=== PATIENT | male | born 1960 ===

== ENCOUNTER 2021-05-08 10:27 | Emergency (ER) | payer BC ==
[2021-05-08] MEDS ORDERED: Sodium Chloride 0.9% 2.5 ML Syringe FLUSH PRN (10:32)
[2021-05-08] MEDS ORDERED: Sodium Chloride 0.9% 10 ML Syringe FLUSH PRN (10:32)
--- NOTE | 2021-05-08 10:34 | EDM.PDOC ---
ED HPI GENERAL MEDICAL PROBLEM - General Stated Complaint: DIZZY/L ARM TINGLING Time Seen by Provider: 05/08/21 10:31 Source of Information: Reports: Patient History Limitations: Reports: No Limitations - History of Present Illness INITIAL COMMENTS - FREE TEXT/NARRATIVE: HISTORY AND PHYSICAL: History of present illness: Patient is a 60-year-old male who presents to the emergency room with complaints of tingling sensation to his upper extremities, dizziness and near syncope. Patient reports he has a longstanding history of neck and back problems due to his scoliosis, which has caused some intermittent tingling to his upper extremities worse over the past several years. He also states he suffers from sciatica and does have intermittent pain and tingling sensation to either lower extremity. Denies any one sided weakness, urinary or fecal incontinence, or complete numbness to either his upper nor lower extremities. 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 He has had episodes of dizziness to the point of "I feel like I could pass out". He feels that resting and laying down improves that. These symptoms occur while he is driving his truck, at home he has not experienced the symptoms as much. He also states he has a tight feeling to his throat after he smokes, causing him to feel slightly short of breath. This sensation dissipates after several minutes. Patient denies any fever, chills, headache, change in vision, chest pain, back pain or cough. Denies any abdominal pain, nausea, vomiting, diarrhea, constipation or dysuria. Has not noted any blood in urine or stool. Patient has been eating and drinking appropriately. Review of systems: As per history of present illness and below otherwise all systems reviewed and negative. Past medical history: As per history of present illness and as reviewed below otherwise noncontributory. Surgical history: As per history of present illness and as reviewed below otherwise noncontributory. Social history: See social history for further information Family history: As per history of present illness and as reviewed below otherwise noncontributory. Physical exam: General: Well developed and well nourished. Alert and orientated x 3. Nontoxic in appearance and in no acute distress. Vital signs are stable and have been reviewed by me. Nursing notes were reviewed. HEENT: Atraumatic, normocephalic, pupils equal and reactive bilaterally, negative for conjunctival pallor or scleral icterus, mucous membranes moist, TMs normal bilaterally, throat clear, neck supple, nontender, trachea midline. No drooling or trismus noted. No meningeal signs. No hot potato voice noted. Lungs: Clear to auscultation bilaterally. No wheezes, rales, or rhonchi. Chest nontender. Normal work of breathing, no accessory muscles used. Heart: S1S2, regular rate and rhythm without overt murmur, gallops, or rubs. No JVD. No peripheral edema Abdomen: Soft, nondistended, nontender. Normoactive bowel sounds. Negative for masses or costovertebral tenderness. C-spine/Back: No pinpoint vertebral tenderness upon palpation. No crepitus, step-offs or obvious deformities. Patient is ambulatory into the emergency room without difficulty or deficit. Able to rock back on heels and walk on toes. Denies any urinary or fecal incontinence. Denies any numbness, tingling or saddle paresthesia. No concerns of serious infection, fracture or cord compression, or cauda equina syndrome. Deep tendon reflexes brisk bilaterally. Skin: Intact, warm, dry. No lesions or rashes noted. Hematologic: No petechiae or purpra. Mucosa appropriate color and normal nail bed color and refill. Extremities: Atraumatic, moves all extremities per self without difficulty or deficits, negative for cords or calf pain. Neurovascular unremarkable. Neuro: Awake, alert, oriented. Cranial nerves II through XII unremarkable. Cerebellum unremarkable. Motor and sensory unremarkable throughout. Exam nonfocal. Psychiatric: Mood and affect are appropriate. Normal thought process. Answering questions appropriately. Notes: *This patient was seen and evaluated during the 2019 SARS-CoV-2 novel coronavirus pandemic period. Community viral transmission is ongoing at time of this encounter and the emergency department is operating under pandemic response procedures. Patient is a 60-year-old male who presents to the emergency room with complaints of intermittent tingling to bilateral hands, dizziness to the point where he states he feels like he "could pass out". He denies any actual syncopal events. He is attributing his hand tingling and symptoms to his chronic neck and back problems related to history of scoliosis. He denies any recent injury, trauma or falls. He does not have any weakness associated with this. Patient's physical exam is unremarkable. We will do lab work and imaging. Dr Lincoln involved in this case.Patient did have a drop in his blood pressure during his orthostatic vital signs although he states he was asymptomatic. Serum lab work is unremarkable. Chest x-ray shows no acute findings. CT results are pending, he will receive IV fluids and we will repeat orthostatic vital signs. CT head and neck shows no CT evidence of acute intracranial abnormality. No intracranial proximal large vessel occlusion or flow limiting luminal stenosis. Patent cervical arterial vasculature without hemodynamically significant luminal stenosis. Vital signs are stable and have improved since IV fluids. Patient does contribute the symptoms to not having AC in his truck. I did encourage him to follow-up with neurology for symptomatic and follow-up care. I also encouraged him to talk to his boss about providing air conditioning in his vehicle as the heat may be contributing to his dizziness. I have talked with the patient about today's findings, in addition to providing specific details for plan of care. Reassessment at the time of disposition demonstrates that the patient is in no acute distress. The patient is stable for discharge, counseling was provided and we discussed in great detail signs and symptoms that would prompt them to return to the Emergency Department. Medication, follow up and supportive care measures were reviewed and discussed. Voices understanding and is agreeable to plan of care. Denies any further questions or concerns at this time. Diagnostics: CBC, CMP, Troponin, EKG, CXR, Head and Neck CT, orthostatic vitals Therapeutics: SL, NS, prednisone Prescription: Prednisone Impression: Cervical radiculopathy Dizziness Plan: 1. You were evaluated today on an emergent basis. Lab work and CT scan of the head and neck show no acute findings. I would encourage that you talk with your boss about providing air conditioning in your vehicle and was the heat may be causing some of your symptoms of dizziness. The tingling sensation to your upper extremities is likely a nerve impingement, please take the steroid as prescribed. As we discussed, I would like you to follow-up with Dr. Cote the neurologist for further evaluation and care if symptoms continue. 2. You can alternate Tylenol and ibuprofen as needed for pain and fever management. 3. If your symptoms should worsen, new symptoms develop or any of the signs and symptoms we discussed should arise please return to the emergency room or call 911 (if needed). Definitive disposition and diagnosis as appropriate pending reevaluation and review of above. - Related Data Allergies Allergy/AdvReac Type Severity Reaction Status Date / Time meperidine [From Demerol] Allergy Other Verified 05/08/21 10:41 Home Meds: Home Meds predniSONE [Prednisone] 60 mg PO DAILY 5 Days #15 tablet 05/08/21 [Rx] ED ROS GENERAL - Review of Systems Review Of Systems: Comprehensive ROS is negative, except as noted in HPI. ED EXAM, GENERAL - Physical Exam Exam: See Below (See dictation) Course - Vital Signs Last Recorded V/S: Last Vital Signs Temp 97 F 05/08/21 10:39 Pulse 74 05/08/21 12:10 Resp 18 05/08/21 12:10 BP 117/72 05/08/21 12:10 Pulse Ox 98 05/08/21 12:10 Orthostatic Blood Pressure [ 103/67 Standing] Orthostatic Blood Pressure [ 129/67 Sitting] Orthostatic Blood Pressure [ 116/62 Supine] - Orders/Labs/Meds Orders: Active Orders 24 hr Category Date Time Status EKG Documentation Completion [RC] STAT Care 05/08/21 10:32 Active Orthostatic Vital Signs [RC] ASDIRECTED Care 05/08/21 10:33 Active Sodium Chloride 0.9% [Normal Saline] 1,000 ml Med 05/08/21 12:03 Active IV STAT Sodium Chloride 0.9% [Saline Flush] Med 05/08/21 10:32 Active 10 ml FLUSH ASDIRECTED PRN Sodium Chloride 0.9% [Saline Flush] Med 05/08/21 10:32 Active 2.5 ml FLUSH ASDIRECTED PRN Saline Lock Insert [OM.PC] Stat Oth 05/08/21 10:32 Ordered Medication Orders Sodium Chloride (Normal Saline) 1,000 mls @ 999 mls/hr IV STAT ONE Stop: 05/08/21 13:03 Last Admin: 05/08/21 12:04 Dose: 999 mls/hr Documented by: GEM Sodium Chloride (Sodium Chloride 0.9% 10 Ml Syringe) 10 ml FLUSH ASDIRECTED PRN PRN Reason: Keep Vein Open Last Admin: 05/08/21 10:56 Dose: 10 ml Documented by: SLATBRI Sodium Chloride (Sodium Chloride 0.9% 2.5 Ml Syringe) 2.5 ml FLUSH ASDIRECTED PRN PRN Reason: Keep Vein Open Last Admin: 05/08/21 10:56 Dose: 2.5 ml Documented by: GEM Labs: Laboratory Tests 05/08/21 05/08/21 Range/Units 10:35 10:35 WBC 9.09 (4.0-11.0) K/uL RBC 5.18 (4.50-5.90) M/uL Hgb 16.4 (13.0-17.0) g/dL Hct 47.0 (38.0-50.0) % MCV 90.7 (80.0-98.0) fL MCH 31.7 (27.0-32.0) pg MCHC 34.9 (31.0-37.0) g/dL RDW Std Deviation 45.3 (28.0-62.0) fl RDW Coeff of Magre 14 (11.0-15.0) % Plt Count 233 (150-400) K/uL MPV 10.80 (7.40-12.00) fL Neut % (Auto) 52.7 (48.0-80.0) % Lymph % (Auto) 38.1 (16.0-40.0) % [place] % (Auto) 7.7 (0.0-15.0) % Eos % (Auto) 1.2 (0.0-7.0) % Baso % (Auto) 0.3 (0.0-1.5) % Neut # (Auto) 4.8 (1.4-5.7) K/uL Lymph # (Auto) 3.5 H (0.6-2.4) K/uL [place] # (Auto) 0.7 (0.0-0.8) K/uL Eos # (Auto) 0.1 (0.0-0.7) K/uL Baso # (Auto) 0.0 (0.0-0.1) K/uL Nucleated RBC % 0.0 /100WBC Nucleated RBCs # 0 K/uL Sodium 140 (136-148) mmol/L Potassium 4.3 (3.5-5.1) mmol/L Chloride 104 (98-107) mmol/L Carbon Dioxide 29.8 (21.0-32.0) mmol/L BUN 14 (7.0-18.0) mg/dL Creatinine 0.9 (0.8-1.3) mg/dL Est Cr Clr Drug Dosing 98.64 mL/min Estimated GFR (MDRD) > 60.0 ml/min Glucose 85 (74-106) mg/dL Calcium 9.3 (8.5-10.1) mg/dL Total Bilirubin 0.3 (0.2-1.0) mg/dL AST 12 L (15-37) IU/L ALT 22 (14-63) IU/L Alkaline Phosphatase 114 (46-116) U/L Troponin I < 0.050 (0.000-0.056) ng/mL Total Protein 6.7 (6.4-8.2) g/dL Albumin 3.5 (3.4-5.0) g/dL Globulin 3.2 (2.6-4.0) g/dL Albumin/Globulin Ratio 1.1 (0.9-1.6) Meds: Medications Generic Name Dose Route Start Last Admin Trade Name Freq PRN Reason Stop Dose Admin Sodium Chloride 1,000 mls @ 999 mls/hr 05/08/21 12:03 05/08/21 12:04 Normal Saline IV 05/08/21 13:03 999 mls/hr STAT ONE Administration Sodium Chloride 10 ml 05/08/21 10:32 05/08/21 10:56 Sodium Chloride 0.9% 10 Ml Syringe FLUSH 10 ml ASDIRECTED PRN Administration Keep Vein Open Sodium Chloride 2.5 ml 05/08/21 10:32 05/08/21 10:56 Sodium Chloride 0.9% 2.5 Ml Syringe FLUSH 2.5 ml ASDIRECTED PRN Administration Keep Vein Open Discontinued Medications Generic Name Dose Route Start Last Admin Trade Name Freq PRN Reason Stop Dose Admin Iopamidol 100 ml 05/08/21 12:05 05/08/21 12:05 Iopamidol 755 Mg/Ml 500 Ml Multipack Bottle IVPUSH 05/08/21 12:06 100 ml ONETIME STA Administration Prednisone 60 mg 05/08/21 12:36 Prednisone 20 Mg Tab PO 05/08/21 12:37 ONETIME ONE Departure - Departure Time of Disposition: 12:46 Disposition: Home, Self-Care 01 Clinical Impression: Cervical radiculopathy, Dizziness - Discharge Information Prescriptions: predniSONE [Prednisone] 60 mg PO DAILY 5 Days #15 tablet Instructions: Cervical Radiculopathy, [id number] Referrals: PCP,None [Primary Care Provider] - Additional Instructions: The following information is given to patients seen in the emergency department who are being discharged to home. This information is to outline your options for follow-up care. We provide all patients seen in our emergency department with a follow-up referral. The need for follow-up, as well as the timing and circumstances, are variable depending upon the specifics of your emergency department visit. If you don't have a primary care physician on staff, we will provide you with a referral. We always advise you to contact your personal physician following an emergency department visit to inform them of the circumstance of the visit and for follow-up with them and/or the need for any referrals to a consulting specialist. The emergency department will also refer you to a specialist when appropriate. This referral assures that you have the opportunity for follow-up care with a specialist. All of these measure are taken in an effort to provide you with optimal care, which includes your follow-up. Under all circumstances we always encourage you to contact your private physician who remains a resource for coordinating your care. When calling for follow-up care, please make the office aware that this follow-up is from your recent emergency room visit. If for any reason you are refused follow-up, please contact the [facility] Emergency Department at and asked to speak to the emergency department charge nurse. [facility] Primary Care [address] [place] [address] [id number] [address] [address] Thank you for choosing the [facility] emergency department in [facility] for your medical needs today. It was a pleasure caring for you. Today you were seen in the emergency department for dizziness and cervical radiculopathy. 1. You were evaluated today on an emergent basis. Lab work and CT scan of the head and neck show no acute findings. I would encourage that you talk with your boss about providing air conditioning in your vehicle and was the heat may be causing some of your symptoms of dizziness. The tingling sensation to your upper extremities is likely a nerve impingement, please take the steroid as prescribed. As we discussed, I would like you to follow-up with Dr. Cote the neurologist for further evaluation and care if symptoms continue. 2. You can alternate Tylenol and ibuprofen as needed for pain and fever management. 3. If your symptoms should worsen, new symptoms develop or any of the signs and symptoms we discussed should arise please return to the emergency room or call 911 (if needed). Sepsis Event Note (ED) - Focused Exam Vital Signs: Vital Signs Temp Pulse Resp BP Pulse Ox 05/08/21 12:10 74 18 117/72 98 05/08/21 11:00 67 18 116/62 98 05/08/21 10:39 97 F 61 118/78 96 - My Orders Last 24 Hours: My Active Orders 05/08/21 10:32 EKG Documentation Completion [RC] STAT Sodium Chloride 0.9% [Saline Flush] 10 ml FLUSH ASDIRECTED PRN Sodium Chloride 0.9% [Saline Flush] 2.5 ml FLUSH ASDIRECTED PRN Saline Lock Insert [OM.PC] Stat 05/08/21 10:33 Orthostatic Vital Signs [RC] ASDIRECTED 05/08/21 12:03 Sodium Chloride 0.9% [Normal Saline] 1,000 ml IV STAT - Assessment/Plan Last 24 Hours: My Active Orders 05/08/21 10:32 EKG Documentation Completion [RC] STAT Sodium Chloride 0.9% [Saline Flush] 10 ml FLUSH ASDIRECTED PRN Sodium Chloride 0.9% [Saline Flush] 2.5 ml FLUSH ASDIRECTED PRN Saline Lock Insert [OM.PC] Stat 05/08/21 10:33 Orthostatic Vital Signs [RC] ASDIRECTED 05/08/21 12:03 Sodium Chloride 0.9% [Normal Saline] 1,000 ml IV STAT
--- NOTE | 2021-05-08 10:45 | PCM.SN.2 ---
- Free Text/Narrative Note: EKG sinus rhythm heart rate [address] and T are essentially normal. The voltage is low impression normal EKG except for low voltage. No prior for comparison
[2021-05-08 11:24] LABS: BLOOD UREA NITROGEN,BUN 14 mg/dL (7.0-18.0); CARBON DIOXIDE,CO2 29.8 mmol/L (21.0-32.0); CHLORIDE,CL 104 mmol/L (98-107); GLUCOSE RANDOM 85 mg/dL (74-106); POTASSIUM,K 4.3 mmol/L (3.5-5.1); SODIUM,NA 140 mmol/L (136-148)
[2021-05-08] MEDS ORDERED: Sodium Chloride 0.9% 1,000 ML IV ONE (12:03)
--- NOTE | 2021-05-08 12:04 | CR ---
INDICATION: Dizziness. TECHNIQUE: Chest 1 view. COMPARISON: None. FINDINGS: No focal consolidation, pleural effusion, or pneumothorax. Normal heart size and pulmonary vascularity. The bones are unremarkable. IMPRESSION: No acute cardiopulmonary findings. Dictated by Kendal Crespo MD @ 05/08/2021 12:02:[address] Kendal Crespo @ May 08 2021 12:02PM
[2021-05-08] MEDS ORDERED: Iopamidol 755 MG/ML 500 ML Multipack Bottle IVPUSH STA (12:05)
--- NOTE | 2021-05-08 12:27 | CT ---
DATE: 05/08/2021. CLINICAL HISTORY: Patient with dizziness, near-syncope, numbness and upper extremity. TECHNIQUE: Standard helical CT image acquisition of the brain following by standard helical CT image acquisition through the head and neck after intravenous contrast bolus enhancement. Multiplanar reconstructed images performed on a separate workstation. COMPARISON: None available. FINDINGS: CT HEAD: There is no intracranial hemorrhage. No extra-axial collection, mass effect, or midline shift. Fernandes-white matter differentiation is preserved. Ventricles are normal in size and morphology for patient age. The calvarium is unremarkable. The orbits are unremarkable. Mucosal thickening of the right maxillary sinus. The mastoid air cells are unremarkable. The soft tissues are unremarkable. CT ANGIOGRAM HEAD AND NECK: The origins of the great vessels from the aortic arch are patent, noting direct origin of the left vertebral artery from the aortic arch. The origins of the right and left vertebral arteries are patent. The common carotid arteries are patent. No significant stenoses at the origins of the proximal internal carotid arteries by NASCET criteria. The more distal cervical segments of the internal carotid arteries are patent. The right vertebral artery is dominant. The cervical segments of the vertebral arteries are patent. No intracranial proximal large vessel occlusion or flow-limiting no stenosis. The visualized lung apices are unremarkable. The thyroid gland is unremarkable. There are degenerative changes in the cervical spine. IMPRESSION: 1. No CT evidence of acute intracranial abnormality. 2. No intracranial proximal large vessel occlusion or flow limiting luminal stenosis. 3. Patent cervical arterial vasculature without hemodynamically significant luminal stenosis. Please note that all CT scans at this facility use dose modulation, iterative reconstruction, and/or weight-based dosing when appropriate to reduce radiation dose to as low as reasonably achievable. Dictated by Farhad Comer MD @ 05/08/2021 12:26:[address] Farhad Comer @ May 08 2021 12:26PM
[2021-05-08] MEDS ORDERED: predniSONE 20 MG Tab PO ONE (12:36)
== END 2021-05-08 13:53 | disposition home or self-care (01) ==
LOC: MW.ED 10:27
DX: M54.12 Radiculopathy, cervical region (principal); R42 Dizziness and giddiness; Z88.8 Allergy status to other drugs, medicaments and biological substances
CPT/HCPCS: 70450; 70496; 70498; 71045; 80053; 84484; 85025; 93005; 99285; A9270; J7030; Q9967; 93010; 99284